=== PATIENT | female | born 1970 | race Caucasian/White ===

== ENCOUNTER 2017-09-29 11:01 | Emergency (ER) | payer MEDICARE, OTHER ==
[~2017-09-29] VITALS: Ht 175.3 cm; Wt 106.8 kg
[2017-09-29] MEDS ORDERED: SODIUM CHLORIDE FLUSH 10ML SYR IVF ONE (11:30)
[2017-09-29] MEDS ORDERED: SODIUM CHLORIDE 0.9% 1,000ML IVBOLUS ONE (11:30)
[2017-09-29] MEDS ORDERED: FAMOTIDINE 20 MG/2 ML IVP ONE (11:30)
[2017-09-29] MEDS ORDERED: FAMOTIDINE 20 MG/2 ML ONE (11:31)
[2017-09-29] MEDS ORDERED: DIPHENHYDRAMINE 50 MG/ML, 1ML ONE (11:38)
[2017-09-29] MEDS ORDERED: METOCLOPRAMIDE 5 MG/ML, 2ML ONE (11:38)
[2017-09-29] MEDS ORDERED: METOCLOPRAMIDE 5 MG/ML, 2ML IVPush ONE (12:00)
[2017-09-29] MEDS ORDERED: DIPHENHYDRAMINE 50 MG/ML, 1ML IVPush ONE (12:00)
[2017-09-29 12:17] LABS: BASOPHILS % (AUTO) 0 % (0-1); EOSINOPHILS # (AUTO) 0.03 x10^3/uL (0-0.4); EOSINOPHILS % (AUTO) 0 % (1-7); LYMPHOCYTES # (AUTO) 0.59 x10^3/uL (1-3.4); LYMPHOCYTES % (AUTO) 6 % (22-44); MD NO; MEAN CORPUSCULAR HEMOGLOBIN 31.8 pg (27.0-34.8); MEAN CORPUSCULAR HGB CONC 33.8 g/dL (32.4-35.8); MEAN CORPUSCULAR VOLUME 93.9 fL (80-100); MEAN PLATELET VOLUME 8.3 fL (7.4-10.4); MONOCYTES # (AUTO) 0.62 x10^3/uL (0.2-0.8); MONOCYTES % (AUTO) 7 % (2-9); NEUTROPHILS # (AUTO) 8.28 x10^3/uL (1.8-6.8); NEUTROPHILS % (AUTO) 87 % (42-75); PLATELET COUNT 244 x10^3/uL (130-400); RED BLOOD COUNT 4.96 x10^6/uL (3.82-5.3); RED CELL DISTRIBUTION WIDTH 14.2 % (9.6-15.2)
[2017-09-29 12:18] LABS: MICROSCOPIC NOT IND
[2017-09-29 12:22] LABS: CULTURE INDICATED? NO
[2017-09-29 12:25] LABS: ALANINE AMINOTRANSFERASE 31 U/L (12-78); ALBUMIN 3.7 g/dL (3.4-5.0); ANION GAP 10 mmol/L (5-15); CALCIUM 8.7 mg/dL (8.5-10.1); CHLORIDE 108 mmol/L (98-107); CREATININE 0.77 mg/dL (0.55-1.02)
[2017-09-29 12:28] LABS: ALKALINE PHOSPHATASE 39 U/L (45-117); BILIRUBIN,TOTAL 1.2 mg/dL (0.2-1.0); TOTAL PROTEIN 7.2 g/dL (6.4-8.2)
[2017-09-29 14:20] VITALS: BP 123/64
== END 2017-09-29 14:47 | disposition home or self-care (01) ==
LOC: ED 12:00
DX: R11.2 Nausea with vomiting, unspecified (principal); R10.13 Epigastric pain; R50.9 Fever, unspecified; E11.9 Type 2 diabetes mellitus without complications; Z79.4 Long term (current) use of insulin
CPT/HCPCS: 36415; 76700; 80053; 81003; 83690; 85025; 96361; 96374; 96375; 99285; J1200; J2765; J7030; S0028

== ENCOUNTER → 2018-02-14 | Outpatient (CLI) | payer OTHER | LOC: CFH 11:54 | PROVIDERS: ATTEND Nurse Practitioner Family | DX: Z02.9 Encounter for administrative examinations, unspecified (principal) ==

== ENCOUNTER → 2018-04-30 | Outpatient (CLI) | payer OTHER ==
[~2018-04-30] MED LIST: BENA40TA3 PO; CHOL200024 PO; CYAN50003 PO; EMPA10TA PO; FISH1CAP PO; GABA300C10 PO; INSU100I11 SC; INSU100I13 SC; METR55GE TP; MULT-658 PO; NORE-74 PO; PIOG30TA23 PO; ROSU10TA PO; SITA1TAB5 PO; VITA400C43 PO
[2018-04-30 10:36] LABS: BASOPHILS # (AUTO) 0.08 x10^3/uL (0-0.1); BASOPHILS % (AUTO) 1 % (0-1); EOSINOPHILS # (AUTO) 0.33 x10^3/uL (0-0.4); EOSINOPHILS % (AUTO) 4 % (1-7); LYMPHOCYTES # (AUTO) 1.71 x10^3/uL (1-3.4); LYMPHOCYTES % (AUTO) 22 % (22-44); MD NO; MEAN CORPUSCULAR HEMOGLOBIN 32.1 pg (27.0-34.8); MEAN CORPUSCULAR HGB CONC 33.7 g/dL (32.4-35.8); MEAN CORPUSCULAR VOLUME 95.3 fL (80-100); MEAN PLATELET VOLUME 8.2 fL (7.4-10.4); MONOCYTES # (AUTO) 0.38 x10^3/uL (0.2-0.8); MONOCYTES % (AUTO) 5 % (2-9); NEUTROPHILS # (AUTO) 5.27 x10^3/uL (1.8-6.8); NEUTROPHILS % (AUTO) 68 % (42-75); PLATELET COUNT 284 x10^3/uL (130-400); RED BLOOD COUNT 4.87 x10^6/uL (3.82-5.3); RED CELL DISTRIBUTION WIDTH 14.4 % (9.6-15.2)
[2018-04-30 10:46] LABS: ANION GAP 8 mmol/L (5-15); CHLORIDE 112 mmol/L (98-107); CHOLESTEROL, TOTAL 119 mg/dL (140-239); CREATININE 0.78 mg/dL (0.55-1.02); TOTAL IRON BINDING CAPACITY 538 mcg/dL (250-450)
[2018-04-30 11:00] LABS: % IRON SATURATION 28 % (20-55); ALANINE AMINOTRANSFERASE 24 U/L (12-78); ALKALINE PHOSPHATASE 49 U/L (45-117); BILIRUBIN,TOTAL 0.8 mg/dL (0.2-1.0); CHOL/HDL RATIO 2.5; HDL CHOL % 39 % (28-40); HDL CHOLESTEROL (DIRECT) 47 mg/dL (40-60); IRON LEVEL 153 mcg/dL (50-170); LDL CHOLESTEROL,CALCULATED 41 mg/dL (54-169); LDL/HDL RATIO 0.9 (0.5-3.0); TOTAL PROTEIN 7.6 g/dL (6.4-8.2); TRANSFERRIN 422 mg/dL (200-360); TRIGLYCERIDES 156 mg/dL (50-200); VLDL CHOLESTEROL 31 mg/dL (0-25)
[2018-04-30 11:07] LABS: FOLATE LEVEL > 20.0 ng/mL (3.1-17.5)
== END | disposition home or self-care (01) ==
LOC: STAR 09:08
PROVIDERS: ATTEND Surgery
DX: Z01.818 Encounter for other preprocedural examination (principal); E11.9 Type 2 diabetes mellitus without complications
CPT/HCPCS: 36415; 71046; 80053; 80061; 82306; 82728; 82746; 83540; 83550; 83970; 84134; 84425; 84466; 85025; 93005

== ENCOUNTER 2018-05-07 09:34 | Inpatient (IN) | payer OTHER ==
[~2018-05-07] VITALS: Ht 174 cm; Wt 106.9 kg
[~2018-05-07 09:34] MED LIST changes: +BUPIVACAINE/PF-EPI 0.5% 1:200K ONE; +METHYLENE BLUE 10 MG/ML 10ML ONE
[2018-05-07] MEDS ORDERED: LACTATED RINGERS 1,000 ML IV SCH (10:11)
[2018-05-07] MEDS ORDERED: ACETAMINOPHEN 1,000 MG/100 ML IV IVPB ONE (10:15)
[2018-05-07] MEDS ORDERED: FENTANYL PF 250 MCG/5ML ONE (10:29)
[2018-05-07] MEDS ORDERED: MIDAZOLAM 1 MG/ML, 2ML ONE (10:29)
[2018-05-07 10:42] LABS: HCG UR SG 1.043 (1.003-1.030)
[2018-05-07] MEDS ORDERED: MEPERIDINE/PF 25MG/0.5ML IVPush PRN (12:30)
[2018-05-07] MEDS ORDERED: FENTANYL PF 100 MCG/2ML IV PRN (12:30)
[2018-05-07] MEDS ORDERED: hydrALAzine 20 MG/ML, 1ML IV PRN (12:30)
[2018-05-07] MEDS ORDERED: OXYcodone 5 MG/5 ML ORAL.SOL UDC PO PRN (12:30)
[2018-05-07] MEDS ORDERED: ALBUTEROL SULFATE 2.5 MG/3 ML NPPB PRN (12:30)
[2018-05-07] MEDS ORDERED: PROMETHAZINE 25 MG/ML, 1ML IV PRN (12:30)
[2018-05-07] MEDS ORDERED: HYDROmorphone 2 MG/ML, 1ML ONE (14:09)
[2018-05-07] MEDS: HYDROmorphone 1 MG/ML, 1ML IV PRN ×2 (14:11→14:28)
[2018-05-07 15:15] VITALS: BP 112/66
[2018-05-07] MEDS ORDERED: PHENOL THROAT SPRAY BOTTLE MM PRN (15:30)
[2018-05-07] MEDS ORDERED: HYDROcodone/APAP 7.5-325MG/15ML UDC PO PRN (15:30)
[2018-05-07] MEDS ORDERED: TEMAZEPAM 15 MG CAPSULE PO PRN (15:30)
[2018-05-07] MEDS ORDERED: LACTATED RINGERS 500 ML IVBOLUS PRN (15:30)
[2018-05-07] MEDS ORDERED: LORazepam 2 MG/ML, 1ML IV PRN (15:30)
[2018-05-07] MEDS: POTASSIUM CHLORIDE 20 MEQ in LACTATED RINGERS 1,000 ML IV SCH (16:08)
[2018-05-07] MEDS: ONDANSETRON 2MG/ML, 2ML IV PRN (16:09)
[2018-05-07] MEDS ORDERED: ROCURONIUM 10MG/ML,5ML ONE (16:22)
[2018-05-07] MEDS ORDERED: PROPOFOL 10 MG/ML, 20ML ONE (16:22)
[2018-05-07] MEDS ORDERED: ONDANSETRON 2MG/ML, 2ML ONE (16:22)
[2018-05-07] MEDS ORDERED: CEFAZOLIN 1,000 MG ONE (16:22)
[2018-05-07] MEDS ORDERED: SUCCINYLCHOLINE 20 MG/ML, 10ML ONE (16:22)
[2018-05-07] MEDS ORDERED: GLYCOPYRROLATE 0.2MG/1ML, 5ML ONE (16:22)
[2018-05-07] MEDS ORDERED: NEOSTIGMINE 1 MG/ML, 10ML ONE (16:22)
[2018-05-07] MEDS: INSULIN LISPRO 100 UNITS/ML, PEN MEDIUM DOSE SS SQ-INSULIN SCH ×2 (18:38→21:00)
[2018-05-07] MEDS: ACETAMINOPHEN 100 ML IV SCH (18:39)
[2018-05-07] MEDS: ENOXAPARIN 30 MG/0.3 ML SQ SCH (18:48)
[2018-05-07] MEDS ORDERED: PROMETHAZINE 25 MG SUPP PR PRN (19:30)
[2018-05-07 19:58] VITALS: BP 118/65
[2018-05-07] MEDS: GABAPENTIN 300 MG CAPSULE PO SCH (21:48)
[2018-05-08] MEDS: POTASSIUM CHLORIDE 20 MEQ in LACTATED RINGERS 1,000 ML IV SCH ×3 (00:16→18:21)
[2018-05-08 00:27] VITALS: BP 111/58
[2018-05-08] MEDS: ONDANSETRON 2MG/ML, 2ML IV PRN (03:44)
[2018-05-08 03:59] VITALS: BP 116/60
[2018-05-08] MEDS: ACETAMINOPHEN 100 ML IV SCH (04:24)
[2018-05-08 05:39] LABS: BASOPHILS # (AUTO) 0.01 x10^3/uL (0-0.1); BASOPHILS % (AUTO) 0 % (0-1); EOSINOPHILS # (AUTO) 0.06 x10^3/uL (0-0.4); EOSINOPHILS % (AUTO) 1 % (1-7); LYMPHOCYTES % (AUTO) 14 % (22-44); MD NO; MEAN CORPUSCULAR HEMOGLOBIN 32.2 pg (27.0-34.8); MEAN CORPUSCULAR HGB CONC 33.8 g/dL (32.4-35.8); MEAN CORPUSCULAR VOLUME 95.2 fL (80-100); MEAN PLATELET VOLUME 8.3 fL (7.4-10.4); MONOCYTES # (AUTO) 0.96 x10^3/uL (0.2-0.8); MONOCYTES % (AUTO) 8 % (2-9); NEUTROPHILS # (AUTO) 8.79 x10^3/uL (1.8-6.8); NEUTROPHILS % (AUTO) 77 % (42-75); PLATELET COUNT 230 x10^3/uL (130-400); RED BLOOD COUNT 4.19 x10^6/uL (3.82-5.3); RED CELL DISTRIBUTION WIDTH 13.8 % (9.6-15.2)
[2018-05-08 05:45] LABS: ALBUMIN 3.2 g/dL (3.4-5.0); ANION GAP 8 mmol/L (5-15); CALCIUM 8.1 mg/dL (8.5-10.1); CHLORIDE 111 mmol/L (98-107); CREATININE 0.58 mg/dL (0.55-1.02)
[2018-05-08] MEDS: INSULIN LISPRO 100 UNITS/ML, PEN MEDIUM DOSE SS SQ-INSULIN SCH ×3 (06:16→16:00)
[2018-05-08] MEDS: ENOXAPARIN 30 MG/0.3 ML SQ SCH (06:17)
[2018-05-08] MEDS: SITAGLIPTIN 25MG TABLET PO SCH ×2 (08:24→17:00)
[2018-05-08] MEDS: metFORMIN 500 MG TABLET PO SCH ×2 (08:25→17:00)
[2018-05-08 08:40] VITALS: BP 109/58
[2018-05-08] MEDS ORDERED: HYDROcodone/APAP 5/325 TABLET PO PRN (09:00)
[2018-05-08] MEDS ORDERED: GABAPENTIN 300 MG CAPSULE PO SCH (09:00)
[2018-05-08] MEDS ORDERED: PIOGLITAZONE 15 MG TABLET PO SCH (09:00)
[2018-05-08 14:03] VITALS: BP 119/58
[2018-05-08] MEDS: GABAPENTIN 300 MG CAPSULE PO SCH (15:39)
[2018-05-08] MEDS ORDERED: HYDR-3240 PO (16:55)
== END 2018-05-08 19:00 | disposition home or self-care (01) | DRG 620 ==
LOC: ORIP 09:34 → 4NOR 14:54
PROVIDERS: ADMIT Surgery; ATTEND Surgery
PROC: 0D164ZA Bypass Stomach to Jejunum, Percutaneous Endoscopic Approach (ICD-10-PCS; principal; 2018-05-07 11:30)
DX: E66.01 Morbid (severe) obesity due to excess calories (principal); E44.1 Mild protein-calorie malnutrition; E78.00 Pure hypercholesterolemia, unspecified; E11.40 Type 2 diabetes mellitus with diabetic neuropathy, unspecified; Z68.35 Body mass index [BMI] 35.0-35.9, adult
CPT/HCPCS: 36415; J3490; 80048; 81025; 82040; 82962; 85025; G0378; J0131; J0690; J1170; J1650; J2250; J2270; J2405; J2704; J2710; J3010; J3480; J0330; J7120; Q9968

== ENCOUNTER → 2018-09-04 | Outpatient (CLI) | payer OTHER ==
[~2018-09-04] MED LIST changes: -BUPIVACAINE/PF-EPI 0.5% 1:200K ONE; +HYDR-3240 PO; -METHYLENE BLUE 10 MG/ML 10ML ONE
== END | disposition home or self-care (01) ==
LOC: CFH 08:28
PROVIDERS: ATTEND Nurse Practitioner Family
DX: Z12.31 Encounter for screening mammogram for malignant neoplasm of breast (principal)
CPT/HCPCS: 77063; 77067

== ENCOUNTER 2020-01-30 09:57 | Outpatient (CLI) | payer BC ==
[~2020-01-30 09:57] MED LIST changes: -ROSU10TA PO; +ROSU10TA2 PO
== END 2020-01-30 23:59 | disposition home or self-care (01) ==
LOC: CFH 09:57
PROVIDERS: ATTEND Family Medicine
DX: Z12.31 Encounter for screening mammogram for malignant neoplasm of breast (principal)
CPT/HCPCS: 77067

== ENCOUNTER 2020-11-17 09:45 | Emergency (ER) | payer SELFPAY ==
[~2020-11-17] VITALS: Ht 172.7 cm; Wt 72.4 kg
[~2020-11-17 09:45] MED LIST changes: +HYDR-2214 PO; -HYDR-3240 PO
--- NOTE | 2020-11-17 09:58 | NUR ---
patient arrives to the er with back pain, nausea/vomiting, left sided back pain. this began an hour ago. she is vomiting some.
[2020-11-17] MEDS ORDERED: ONDANSETRON 2MG/ML, 2ML IVPush ONE (10:30)
[2020-11-17] MEDS ORDERED: HYDROmorphone 1 MG/ML, 1ML INJ IV ONE (10:30)
--- NOTE | 2020-11-17 10:30 | NUR ---
sent clean catch urine and blood.
[2020-11-17] MEDS ORDERED: HYDROmorphone 1 MG/ML, 1ML INJ ONE (10:32)
[2020-11-17] MEDS ORDERED: ONDANSETRON 2MG/ML, 2ML ONE (10:32)
[2020-11-17 10:40] LABS: BASOPHILS % (AUTO) 1 % (0-1); EOSINOPHILS % (AUTO) 1 % (1-7); LYMPHOCYTES % (AUTO) 22 % (22-44); MEAN CORPUSCULAR HEMOGLOBIN 30.3 pg (27.0-34.8); MEAN PLATELET VOLUME 7.6 fL (7.4-10.4); MONOCYTES % (AUTO) 5 % (2-9); NEUTROPHILS % (AUTO) 72 % (42-75); PLATELET COUNT 256 x10^3/uL (130-400); RED BLOOD COUNT 4.33 x10^6/uL (3.82-5.3); RED CELL DISTRIBUTION WIDTH 14.4 % (9.6-15.2)
[2020-11-17 10:45] LABS: MD NO
[2020-11-17 10:51] LABS: ALANINE AMINOTRANSFERASE 41 U/L (12-78); ALBUMIN 3.9 g/dL (3.4-5.0); ANION GAP 7 mmol/L (5-15); CALCIUM 8.6 mg/dL (8.5-10.1); CHLORIDE 108 mmol/L (98-107)
[2020-11-17 10:53] LABS: ALKALINE PHOSPHATASE 83 U/L (45-117); BILIRUBIN,TOTAL 0.5 mg/dL (0.2-1.0); CREATININE 0.68 mg/dL (0.55-1.02); TOTAL PROTEIN 7.5 g/dL (6.4-8.2)
[2020-11-17 10:56] LABS: MICROSCOPIC INDICATED
[2020-11-17 11:44] VITALS: BP 123/80
== END 2020-11-17 11:50 | disposition home or self-care (01) ==
LOC: ED 11:44
DX: N13.2 Hydronephrosis with renal and ureteral calculous obstruction (principal); E11.9 Type 2 diabetes mellitus without complications
CPT/HCPCS: 36415; 74176; 80053; 81001; 83690; 85025; 87086; 96374; 96375; 99284; J1170; J2405; 96376